=== PATIENT | female | born 1990 | race Two or more races ===

== ENCOUNTER 2025-04-22 14:15 | Emergency (ER) | payer OTHER ==
[~2025-04-22] VITALS: Ht 170.2 cm; Wt 94.8 kg
[2025-04-22 16:38] LABS: BASO % 0.4 % (0.1-1.2); EOS # 0.15 (0.04-0.54); EOS % 1.7 % (0.7-7.0); LYMPH # 2.51 (1.18-3.74); LYMPH % 27.9 % (19.3-53.1); MEAN PLATELET VOLUME 9.40 fl (9.4-12.4); MONO # 0.51 (0.24-0.82); MONO % 5.7 % (4.7-12.5); NEUT # 5.76 (1.56-6.13); NEUT % 64.0 % (34.0-71.1); RED CELL DISTRIBUTION WIDTH 12.4 % (11.6-14.4)
[2025-04-22 16:57] LABS: URINE APPEARANCE Clear; URINE BILIRRUBIN Negative (NEGATIVE); URINE BLOOD Large; URINE COLOR Orange; URINE GLUCOSE Negative (NEGATIVE); URINE KETONE Negative (NEGATIVE); URINE LEUKOCYTE Trace; URINE NITRATE Negative; URINE PROTEIN 30 (NEGATIVE); URINE UROBILINOGEN 0.2 E.U./dl
[2025-04-22 17:00] LABS: URINE BACTERIA 322.7 uL (0.0-1933); URINE EPITHELIAL CELLS 9.3 uL (0.0-38.8); URINE RBC 5889.9 uL (0.0-20.8); URINE WBC 65.6 uL (0.0-23.2)
[2025-04-22 17:04] LABS: URINE CAST 0.00 uL (0.0-1.40)
== END 2025-04-22 18:05 | disposition home or self-care (01) ==
LOC: ER 14:15
PROVIDERS: General Practice
DX: O20.8 Other hemorrhage in early pregnancy (principal); Z3A.01 Less than 8 weeks gestation of pregnancy; I10 Essential (primary) hypertension